=== PATIENT | male | born 1955 | race Caucasian/White ===

== ENCOUNTER 2018-07-05 06:27 | Inpatient (IN) | payer OTHER ==
--- NOTE | 2018-06-18 08:09 | HPE ---
DATE OF ADMISSION: 07/05/2018 ADMITTING PHYSICIAN: Dr. Mickey Gifford. CHIEF COMPLAINT: Right hip pain. HISTORY OF PRESENT ILLNESS: This is a pleasant 62-year-old male with progressively worsening right hip pain and stiffness. He has failed to improve with conservative treatment. He elected for surgery for his continued symptoms. He has pain with weightbearing activities and his activities of daily living. X-rays of his hip are notable for advanced osteoarthritis of the right hip joint. He has consented for a right total hip arthroplasty by Dr. Mickey Gifford. Medical optimization was performed by Dr. Dejan Gifford. ALLERGIES: None. CURRENT MEDICATIONS: - simvastatin 40 mg at bedtime - baby aspirin once a day - glipizide 5 mg twice a day - lisinopril 10 mg - sertraline 100 mg a day - tramadol 50 mg as needed PAST MEDICAL HISTORY INCLUDES: Diabetes. Hypertension. Hyperlipidemia. Anxiety or depression. PAST SURGICAL HISTORY INCLUDES: Back surgery in 2016 and a finger procedure. SOCIAL HISTORY: This gentleman is retired. Does not smoke. Rarely drinks alcohol. FAMILY HISTORY: Noncontributory. REVIEW OF SYSTEMS: This patient denies chest pain, heart palpitations, cough, wheezing, difficulty breathing and shortness of breath. He denies abdominal pain, nausea, vomiting, diarrhea or constipation. He denies recent upper respiratory infection or urinary tract infection symptoms. He does complain of persistent pain in the right hip joint and pain with weightbearing activities in his right hip. PHYSICAL EXAMINATION: General: He is a well-nourished, well-developed in no acute distress, alert male patient. He walks with a moderate limp favoring the right lower extremity. He is not using assistive devices. Vital signs: He is 5 feet 11, weighs 210 pounds with a temperature of 98.9, blood pressure 132/76, pulse of 82 and respirations of 18. Neck was supple without adenopathy or jugular venous distension. There were no carotid bruits appreciated upon auscultation. Lungs were clear to auscultation without rales or wheeze throughout. Heart: Regular rate and rhythm. Abdomen: Bowel sounds were present. Extremities: Examination of the hip revealed intact skin. The patient had decreased range of motion secondary to pain and stiffness. The limb is neurovascularly intact. LABORATORY DATA: The patient let me know he did have his labs done a week ago with Dr. Yuriy Gifford's office. Unfortunately, we do not have those today. We put in a call for them and they still have not shown up. He did let me know, however, that his only concern was with his EKG and that he should be hearing from Dr. Almaraz's office for clearance. So we are going to have him call back to Dr. Yuriy Gifford's office to check on that and will continue to look labs, chest x-ray and EKG. Should there be any difficulties with it we will get in touch with him but otherwise we will see him on 07/05/2018 for his right total hip arthroplasty with Dr. Mickey Gifford.
[2018-07-05] VITALS (7 sets, daily range): BP systolic 105–160; BP diastolic 58–88
[~2018-07-05] VITALS: Ht 188 cm; Wt 97.5 kg
[~2018-07-05 06:27] MED LIST: ASPI1TAB PO; CIPR250T3 PO; CIPR5SUS PO; GLIP5TAB8 PO; LISI10TA4 PO; LISI40TAB PO; NORC1TAB4 PO; SERT-138 PO; SIMV40TA2 PO; TRAM50TA2 PO; nitroglycerine SL
[2018-07-05] MEDS ORDERED: ceFAZolin 2 GM/D5W 50 ML IV BAG (J0690 PER 500MG) As Ordered ONE (07:04)
[2018-07-05] MEDS ORDERED: TRANEXAMIC ACID 100 MG/ML 10ML VIAL As Ordered ONE (07:12)
[2018-07-05] MEDS ORDERED: ceFAZolin 1GM INJ (J0690 PER 500MG) As Ordered ONE (07:12)
[2018-07-05] MEDS ORDERED: EPINEPHrine INJ 1 MG/ML 1ML AMP As Ordered ONE (07:12)
[2018-07-05] MEDS ORDERED: LR 1,000 ML IV ONE (07:30)
--- NOTE | 2018-07-05 07:49 | REP ---
Chest x-ray: Two views. History: Right hip arthritis. Comparison study: November 15, 2015. Findings: The lungs are well inflated and clear. The pleural angles are sharp. Heart size is normal. The aorta is somewhat tortuous. Pulmonary vasculature is not increased. Mild degenerative changes are seen in the thoracic spine. Impression: No active disease. Electronically Signed by Humberto Ross MD 07/05/2018 07:47 A
--- NOTE | 2018-07-05 07:50 | IPN ---
DATE: 07/05/2018 The patient seen and examined. He wished to go ahead with a right total hip arthroplasty. He understands the nature of this and the risks of bleeding, infection, damage to nerves, vessels, persistent pain, wear, loosening, dislocation, leg length inequality, blood clots, medical problems, among others. Preop clearance was obtained. He wishes to proceed.
[2018-07-05] MEDS ORDERED: PHENYLEPHRINE INJ 10MG/ML VIAL (J2370) As Ordered ONE (08:36)
[2018-07-05] MEDS ORDERED: fentaNYL 100 MCG/2 ML INJECTION (J3010) As Ordered ONE (08:36)
[2018-07-05] MEDS ORDERED: VASOPRESSIN INJ 20 UNITS/ML VIAL As Ordered ONE (08:36)
[2018-07-05] MEDS ORDERED: MIDAZOLAM INJ 2 MG/2 ML VIAL (J2250) As Ordered ONE (08:36)
[2018-07-05] MEDS ORDERED: PROPOFOL 200 MG/20 ML VIAL As Ordered ONE ×2 (08:36→09:11)
[2018-07-05] MEDS ORDERED: ONDANSETRON 4MG/2ML VIAL (J2405) As Ordered ONE (08:36)
[2018-07-05] MEDS ORDERED: LIDOCAINE 2% INJ 100 MG/5 ML SDV (FOR ANES.) As Ordered ONE (08:36)
[2018-07-05] MEDS ORDERED: BUPIVACAINE/DEXTROSE 0.75% 2 ML AMP As Ordered ONE (08:36)
[2018-07-05] MEDS: SERTRALINE 100 MG TAB PO SCH (09:00)
[2018-07-05] MEDS ORDERED: fentaNYL 100 MCG/2 ML INJECTION (J3010) IV PRN (10:00)
[2018-07-05] MEDS ORDERED: MORPHINE 4 MG/ML 1ML VIAL/SYRINGE (J2270) IV PRN (10:00)
[2018-07-05] MEDS ORDERED: FLEET ENEMA PR PRN (10:00)
[2018-07-05] MEDS ORDERED: ONDANSETRON 4MG/2ML VIAL (J2405) IV PRN ×2 (10:00)
[2018-07-05] MEDS ORDERED: ePHEDrine INJ 50 MG/ML VIAL IV SCH (10:00)
[2018-07-05] MEDS ORDERED: METOCLOPRAMIDE INJ 10MG/2ML VIAL (J2765) IV PRN (10:00)
[2018-07-05] MEDS ORDERED: MEPERIDINE INJ 25 MG/ML VIAL (J2175) IV PRN (10:00)
[2018-07-05] MEDS ORDERED: LR 1,000 ML IV SCH ×2 (10:00)
[2018-07-05] MEDS ORDERED: ACETAMINOPHEN TAB 650MG DOSE (2X325MG) PO PRN (10:00)
[2018-07-05] MEDS ORDERED: PERCOCET 5MG/325MG TAB PO PRN ×2 (10:00)
[2018-07-05] MEDS: ePHEDrine SULFATE 25 MG/5 ML(5MG/ML) SYRINGE IV SCH ×3 (10:05→10:14)
[2018-07-05] MEDS: PHENYLEPHRINE INJ 10MG/ML VIAL (J2370) IV SCH ×2 (10:40→10:48)
--- NOTE | 2018-07-05 10:46 | REP ---
Right hip: Two views. History: Postop. Findings: AP and cross-table lateral portably obtained radiographs right hip demonstrate right hip arthroplasty in good position. Lateral skin lópez are seen. No other finding. Electronically Signed by Humberto Ross MD 07/05/2018 02:32 P
[2018-07-05] MEDS ORDERED: DEXTROSE 50% 50 ML SYRINGE IV PRN (12:00)
[2018-07-05] MEDS ORDERED: GLUCAGON FOR INJ 1 MG VIAL (J1610) SC PRN (12:00)
[2018-07-05] MEDS ORDERED: GLUCOSE 4 GM CHEW TABLET PO PRN (12:00)
[2018-07-05] MEDS: HumaLOG INSULIN (NovoLOG) PER UNIT SC SCH ×2 (12:00→18:58)
[2018-07-05] MEDS: MORPHINE 4 MG/ML 1ML VIAL/SYRINGE (J2270) IV PRN ×3 (12:25→23:15)
--- NOTE | 2018-07-05 15:42 | IPNPDOC ---
Text Note Date of Service The patient was seen on 07/05/18. NOTE Subjective: Patient is a 62-year-old male with a past medical history of hypertension, dyslipidemia, diabetes and depression who presented to [facility] for an elective right hip arthroplasty with orthopedic surgery. Patient had received medical clearance via his outpatient provider, Dr. Dejan Gifford as well as Dr. Almaraz of cardiology. 's medical clearance involved an echocardiogram, EKG and a stress test, all of which was reported negative. hospitalist service was called for management of his medical problems. Patient was seen and examined at the bedside. Currently patient is seen postoperatively. He denies any chest pain, shortness of breath, palpitations. Denies nausea, vomiting, abdominal pain. Has not yet experienced a bowel movement since the procedure. Denies any urinary discomfort. Objective: Vitals (See below) General: Lying in bed, no acute distress, comfortable, AAOx3 HEENT: NC, AT CVS: RRR, +S1S2 Lungs: Fair air entry b/l, -w/r/r Abdomen: Soft, ND, NT Extremities: - Edema, - Calf tenderness Assessment and plan: Right hip pain - s/p total right hip arthroplasty (POD#0) - Presented to [facility] for an elective right hip total arthroplasty with orthopedic surgery - Patient has received medical clearance via his outpatient provider, Dr. Yuriy Gifford as well as clearance by cardiology Dr. Almaraz - Pain control, anticoagulation and physical therapy at direction of primary team HTN - Blood pressure appears moderately controlled - c/w Lisinopril with holding parameters DLP - c/w Simvastatin DM2 - Will start ISS Depression - c/w Sertraline DVT prophylaxis - As per orthopedic team [place] POWERS, I+O [facility] POWERS I+O Laboratory Tests 07/05/18 07:01 Vital Signs Date Time Temp Pulse Resp B/P (MAP) Pulse Ox O2 Delivery O2 Flow Rate FiO2 07/05/18 15:00 97.6 82 18 146/88 (107) 97 2.0 VI MCKAY MD Jul 05, 2018 15:42
[2018-07-05] MEDS: PERCOCET 5MG/325MG TAB PO PRN ×2 (15:50→20:50)
[2018-07-05] MEDS ORDERED: HumaLOG INSULIN (NovoLOG) PER UNIT SC SCH (21:00)
[2018-07-05] MEDS ORDERED: SIMVASTATIN 40 MG TAB PO SCH (21:00)
[2018-07-06] MEDS: PERCOCET 5MG/325MG TAB PO PRN ×2 (01:05→06:17)
[2018-07-06] MEDS: MORPHINE 4 MG/ML 1ML VIAL/SYRINGE (J2270) IV PRN (02:48)
[2018-07-06] MEDS: KETOROLAC 30 MG/ML VIAL (J1885) IV SCH ×3 (03:41→16:07)
[2018-07-06 06:00] VITALS: BP 146/70
[2018-07-06 07:20] LABS: BASO % 0.3 % (0.0-1.0); EOS # 0.1 10^3/uL (0.0-0.50); HEMATOCRIT 38.7 % (42.0-52.0); HEMOGLOBIN 12.8 g/dl (13.5-17.5); LYMPH # 1.5 10^3/uL (1.5-4.5); LYMPH % 16.4 % (24.0-44.0); MEAN CORPUSCULAR HEMOGLOBIN 31.1 pg (27.0-33.0); MEAN CORPUSCULAR HGB CONC 33.1 g/dl (32.0-36.5); MEAN CORPUSCULAR VOLUME 94.2 fl (80.0-96.0); MONO # 1.1 10^3/uL (0.0-0.8); MONO % 12.3 % (0.0-5.0); NEUTROPHILS # 6.3 10^3/uL (1.8-7.7); NEUTROPHILS % 69.5 % (36.0-66.0); PLATELET COUNT, AUTOMATED 141 10^3/uL (150-450); RED BLOOD COUNT 4.11 10^6/uL (4.30-6.10); WHITE BLOOD COUNT 9.1 10^3/uL (4.0-10.0)
[2018-07-06 07:29] LABS: INR 1.09; PROTHROMBIN TIME 14.2 SECONDS (12.1-14.4)
[2018-07-06 07:44] LABS: BLOOD UREA NITROGEN 18 MG/DL (7-18); CALCIUM LEVEL 8.2 MG/DL (8.8-10.2); CARBON DIOXIDE LEVEL 26 MEQ/L (21-32); CHLORIDE LEVEL 102 MEQ/L (98-107); CREATININE FOR GFR 1.25 MG/DL (0.70-1.30); GLOMERULAR FILTRATION RATE > 60.0 (>49); GLUCOSE, FASTING 220 MG/DL (70-100); MAGNESIUM LEVEL 1.8 MG/DL (1.8-2.4); POTASSIUM SERUM 4.1 MEQ/L (3.5-5.1); SODIUM LEVEL 137 MEQ/L (136-145)
[2018-07-06] MEDS: HumaLOG INSULIN (NovoLOG) PER UNIT SC SCH ×2 (08:04→12:34)
[2018-07-06] MEDS: SERTRALINE 100 MG TAB PO SCH (08:05)
[2018-07-06 08:06] VITALS: BP 146/70
[2018-07-06] MEDS ORDERED: LISINOPRIL 10 MG TAB PO SCH (09:00)
[2018-07-06] MEDS ORDERED: MOM 30ML SUSPENSION UDC PO SCH (09:00)
[2018-07-06] MEDS ORDERED: MIRALAX *UNIT DOSE* 17GM PACKET PO SCH (09:00)
[2018-07-06] MEDS ORDERED: XARE10TA PO (09:16)
[2018-07-06] MEDS ORDERED: PERC5TAB12 PO (09:16)
[2018-07-06 10:00] VITALS: BP 135/69
[2018-07-06] MEDS ORDERED: LEVEMIR (INSULIN DETEMIR) 1 UNITS/0.01ML SC ONE (13:00)
[2018-07-06 14:00] VITALS: BP 132/63
--- NOTE | 2018-07-06 14:14 | IPNPDOC ---
Text Note Date of Service The patient was seen on 07/06/18. NOTE Subjective: Patient is a 62-year-old male with a past medical history of hypertension, dyslipidemia, diabetes and depression who presented to [facility] [place] for an elective right hip arthroplasty with orthopedic surgery. Patient had received medical clearance via his outpatient provider, Dr. Dejan Gifford as well as Dr. Almaraz of cardiology. 's medical clearance involved an echocardiogram, EKG and a stress test, all of which was reported negative. hospitalist service was called for management of his medical problems. Patient was seen and examined at the bedside. Patient has no evidence of chest pain, shortness of breath or palpitations. He denies nausea, vomiting. Denies abdominal pain. Has had the ability to pass gas. Denies any bowel movements. Has not yet worked with physical therapy. Objective: Vitals (See below) General: Lying in bed, no acute distress, comfortable, AAOx3 HEENT: NC, AT CVS: RRR, +S1S2 Lungs: Fair air entry b/l, auscultation is without any wheezing, rales or rhonchi Abdomen: Soft, nondistended without tenderness Extremities: No evidence of lower extremity edema, - Calf tenderness Assessment and plan: Right hip pain - s/p total right hip arthroplasty (POD#1) - Presented to [facility] for an elective right hip total arthroplasty with orthopedic surgery - Patient has received medical clearance via his outpatient provider, Dr. Dejan Gifford as well as clearance by cardiology Dr. Almaraz - Pain control, anticoagulation and physical therapy at direction of primary team HTN - Blood pressure appears moderately controlled - c/w Lisinopril with holding parameters DLP - c/w Simvastatin DM2 with Hyperglycemia - Will start long-acting insulin at low dose - c/w ISS Depression - c/w Sertraline DVT prophylaxis - As per orthopedic team Disposition: - Will be working with physical therapy today [place] POWERS, I+O [place] POWERS, I+O Laboratory Tests 07/06/18 06:52 Red Blood Count 4.11 L, Mean Corpuscular Volume 94.2, Mean Corpuscular Hemoglobin 31.1, Mean Corpuscular Hemoglobin Concent 33.1, Red Cell Distribution Width 12.7, Neutrophils (%) (Auto) 69.5 H, Lymphocytes (%) (Auto) 16.4 L, Monocytes (%) (Auto) 12.3 H, Eosinophils (%) (Auto) 1.0, Basophils (%) (Auto) 0.3, Neutrophils # (Auto) 6.3, Lymphocytes # (Auto) 1.5, Monocytes # (Auto) 1.1 H, Eosinophils # (Auto) 0.1, Basophils # (Auto) 0.0, Calcium Level 8.2 L Vital Signs Date Time Temp Pulse Resp B/P (MAP) Pulse Ox O2 Delivery O2 Flow Rate FiO2 07/06/18 10:00 96.8 75 18 135/69 (91) 91 07/05/18 16:00 2.0 I&O- Last 24 Hours up to 6 AM 07/06/18 06:00 Intake Total 5460 ml Output Total 2800 ml Balance 2660 ml VI MCKAY MD Jul 06, 2018 14:14
[2018-07-06] MEDS ORDERED: ePHEDrine SULFATE 25 MG/5 ML(5MG/ML) SYRINGE ONE (16:29)
[2018-07-06] MEDS ORDERED: RIVAROXABAN 10 MG TAB (XARELTO) PO SCH (18:00)
[2018-07-07] MEDS ORDERED: LEVEMIR (INSULIN DETEMIR) 1 UNITS/0.01ML SC SCH (09:00)
--- NOTE | 2018-07-09 09:32 | DSES ---
DATE OF ADMISSION: 07/05/2018 DATE OF DISCHARGE: 07/06/2018 ADMISSION DIAGNOSIS: Symptomatic right hip osteoarthritis. DISCHARGE DIAGNOSIS: Status post right total hip arthroplasty. HISTORY OF PRESENT ILLNESS: This is a pleasant 62-year-old male with progressive right hip osteoarthritis, pain and stiffness. He consented for a right total hip arthroplasty per Dr. Mickey Gifford. Medical optimization per Dr. Dejan Gifford. X-rays were consistent with advanced osteoarthritis. HOSPITAL COURSE: The patient uneventfully underwent a right total hip arthroplasty under spinal anesthesia and was returned to postanesthesia care unit (PACU) comfortable. Our hospital team felt the patient was ready for discharge on 07/06/2018 with the following instructions, diet is regular, weightbearing as tolerated with walker, thromboembolic-deterrent (OLIVER) stockings times 30 days, Xarelto for deep vein thrombosis (DVT) prophylaxis, Percocet as needed for pain, Optifoam dressing change in 3-4 days' time with followup at orthopedic group and 12-14 days for a wound check and staple removal. The patient is encouraged to contact our office sooner with increased pain, numbness, tingling, drainage, fever greater than 101 or further concerns. MTDD
--- NOTE | 2018-07-09 11:14 | RO ---
DATE OF PROCEDURE: 07/05/2018 PREOPERATIVE DIAGNOSIS: Right hip osteoarthritis. POSTOPERATIVE DIAGNOSIS: Right hip osteoarthritis. PROCEDURE: Right total hip arthroplasty using a Corona high offset size 6 with a 1.5 neck, 36 ball, and a 60 cup. SURGEON: Dr. Mickey Gifford [employer] WORKER: Tarun Godwin ANESTHESIA: Spinal. ESTIMATED BLOOD LOSS: 200. COMPLICATIONS: None. INDICATIONS: 62-year-old gentleman who has had some persistent worsening right hip pain. He wished to go ahead with surgical treatment. He understood the nature of this, the risks of bleeding, infection, damage to nerves, vessels, persistent pain, wear, loosening, dislocation, leg length inequality, blood clots, medical problems, , among others. DESCRIPTION OF PROCEDURE: Patient was taken to the operating room, placed in supine position after spinal anesthesia was induced. The patient was turned to the left lateral decubitus position. The right hip was prepped and draped in usual sterile fashion. A Levar positioner was used, and all areas were padded appropriately. Then, after time-out was performed, created a longitudinal incision over the lateral aspect of the hip. Sharp dissection was carried down through subcutaneous tissue, and the fascia was exposed. I controlled hemostasis with the cautery. I then divided the anterior 40% of the abductor off the anterior aspect of the hip and exposed the femoral neck. Once I had appropriately freed this up, I was able to dislocate the hip with the cook's assistant's help. I used a canal initiating reamer followed by the canal finding reamer, the lateralizing reamer, and then sequentially reamed up to a size 6, which had good purchase and good fill. I then removed the femoral head, making a cut about three-quarters of a fingerbreadth up from the lesser trochanter. I then prepared the acetabulum. Soft tissue was removed from around the acetabulum. I then sequentially reamed, starting with approximately a 50, and was able to ream up to a 59 with good bleeding bone and good concentric reaming. I was very pleased with the appearance of the acetabulum. I then was able to impact in a size 60 cup, and the appropriate amount of anteversion in horizontal tilt impacted this down until it was well seated. There was a small osteophyte anteriorly that was removed. I placed the apex hole eliminator followed by the 60 x 36 polyethylene, which was impacted in place. This was well seated. I directed attention back to the femur, used the cookie cutter to remove the proximal bone, and then sequentially broached up to a size 6, which had excellent fit and fill. I was able to countersink it slightly so the calcar planer was used, and then I trialed off of this. The 1.5 and 5 were both trialed, and the 1.5 had better soft tissue tension. I did use a high offset because I did medialize the acetabulum some and also he had a high offset varus type neck. The 1.5 had appropriate soft tissue tension and minimal shuck in full extension, was very stable in extension, external rotation, flexion, internal rotation. Position appeared to be excellent. I irrigated as I had multiple times prior to this. I irrigated canal, placed the actual size 6 high offset stem, impacted it in place. I did one more trial with the next and selected the 1.5 head, which was impacted over a dry taper, and I then copiously irrigated, placed the tranexamic acid (TXA) solution. I repaired the minimus with #1 Vicryl suture, the abductor, which was notably detached at the initiation of the exposure. There was corticated bone along the anterior aspect of the proximal femur. I decorticated this with a rongeur and then took a significant amount of time repairing the abductor with several holes being placed through the bone and was able to get reasonably good tissue and very solid stitches. This was done with #1 Vicryl suture. I then repaired the fascia dirk with #1 Vicryl suture in interrupted fashion and running Stratafix suture obtaining a watertight closure. I irrigated at each level, closed the subcu with #2-0 Vicryl and the skin with lópez. Sterile dressing was applied, and he was taken to recovery room in stable condition. There were no known complications. The plan will be routine postop. The cook's assistant was instrumental in holding retractors and assisting in reducing and dislocating the hip and assisting in wound closure.
== END 2018-07-06 16:30 | disposition home or self-care (01) | DRG 470 ==
LOC: M OR 06:27 → M MS5PR 11:24
PROVIDERS: ADMIT Orthopaedic Surgery; ATTEND Orthopaedic Surgery
PROC: 0SR90JZ Replacement of Right Hip Joint with Synthetic Substitute, Open Approach (ICD-10-PCS; principal; 2018-07-05 07:30)
DX: M16.11 Unilateral primary osteoarthritis, right hip (principal); Z79.899 Other long term (current) drug therapy; E11.9 Type 2 diabetes mellitus without complications; I10 Essential (primary) hypertension; E78.5 Hyperlipidemia, unspecified; F32.9 Major depressive disorder, single episode, unspecified; F41.9 Anxiety disorder, unspecified; Z79.82 Long term (current) use of aspirin

== ENCOUNTER 2019-08-29 22:10 | Emergency (ER) | payer OTHER, MEDICARE ==
[~2019-08-29] VITALS: Ht 180.3 cm; Wt 104.5 kg
[~2019-08-29 22:10] MED LIST changes: -ASPI1TAB PO; +ASPI81TA26 PO; +LISI40TA52 PO; -LISI40TAB PO; -NORC1TAB4 PO; +NORC1TAB7 PO; +PERC5TAB12 PO; -SIMV40TA2 PO; +SIMV40TA20 PO; +XARE10TA PO
[2019-08-30] MEDS ORDERED: NS 1,000 ML IV ONE
[2019-08-30 00:38] LABS: HEMATOCRIT 33.6 % (42.0-52.0); HEMOGLOBIN 10.5 g/dl (13.5-17.5); MEAN CORPUSCULAR HEMOGLOBIN 28.6 pg (27.0-33.0); MEAN CORPUSCULAR HGB CONC 31.3 g/dl (32.0-36.5); MEAN CORPUSCULAR VOLUME 91.6 fl (80.0-96.0); PLATELET COUNT, AUTOMATED 135 10^3/uL (150-450); RED BLOOD COUNT 3.67 10^6/uL (4.30-6.10)
[2019-08-30 00:56] LABS: INR 1.11
[2019-08-30 01:08] LABS: ALBUMIN 2.1 GM/DL (3.2-5.2); BILIRUBIN,DIRECT 0.3 MG/DL (0.0-0.2); BILIRUBIN,TOTAL 0.8 MG/DL (0.2-1.0); TOTAL PROTEIN 6.9 GM/DL (6.4-8.2)
[2019-08-30 01:32] LABS: WHITE BLOOD COUNT 23.6 10^3/uL (4.0-10.0)
[2019-08-30 01:41] LABS: ANISOCYTOSIS 1+; EOSINOPHILS 1 % (0-3); LYMPHOCYTES 49 % (16-44); MONOCYTES 5 % (0-5); NEUTROPHILS 44 % (28-66); PLATELET ESTIMATE NORMAL (NORMAL)
[2019-08-30 01:42] LABS: HYPOCHROMASIA 1+
[2019-08-30 01:43] LABS: PLATELET CLUMPS SMALL AMT
[2019-08-30] MEDS ORDERED: ISOVUE-370 76% 100ML VIAL As Ordered ONE (03:20)
--- NOTE | 2019-08-30 04:25 | REPVR ---
PROCEDURE INFORMATION: Exam: CT Angiography Abdomen and Pelvis With Contrast Exam date and time: 08/30/2019 3:05 AM Age: 63 years old Clinical indication: Other: Bloddy drainage praful tube; Prior surgery; Surgery date: Post-operative (0-2 days); Surgery type: Recent biopsy of mass; Additional info: Bloody drainage praful tube/recent biopsy of mass in abd TECHNIQUE: Imaging protocol: Computed tomographic angiography of the abdomen and pelvis with intravenous contrast material. 3D rendering: MIP and/or 3D reconstructed images were created by the technologist. Radiation optimization: All CT scans at this facility use at least one of these dose optimization techniques: automated exposure control; mA and/or kV adjustment per patient size (includes targeted exams where dose is matched to clinical indication); or iterative reconstruction. Contrast material: ISO; Contrast volume: 100 ml; Contrast route: AC; COMPARISON: DC Hip, Ap,Lat 2018-07-05 09:54 FINDINGS: Tubes, catheters and devices: Percutaneous cholecystostomy tube is in position. Lungs: Moderate left-sided pleural effusion with associated pulmonary left lower lobe atelectasis. Aorta: Large bulky mass extending within the retroperitoneum around the aorta, and along the mesenteric root into the mesentery measuring approximately 18 x 18 x 16 cm. Celiac trunk and mesenteric arteries: No occlusion or significant stenosis. Renal arteries: Mild right renal artery stenosis. Right iliac arteries: No occlusion or significant stenosis. Left iliac arteries: No occlusion or significant stenosis. Liver: No mass. Gallbladder and bile ducts: Small amount of contrast in the gallbladder versus stones or small amount of hemorrhage. Pancreas: Diffuse heterogeneity of the pancreas, which appears involved and or encased by the diffuse mass. Question necrosis versus peripancreatic fluid collections. Spleen: Unremarkable. No splenomegaly. Adrenals: Unremarkable. No mass. Kidneys and ureters: Unchanged 2.5 cm right renal cyst. Punctate nonobstructing right renal calculus. Stomach and bowel: Unremarkable. No obstruction. No mucosal thickening. Appendix: No evidence of appendicitis. Intraperitoneal space: Small amount of free fluid. Adjacent fluid collections in the mesentery, largest measuring approximately 13 x 4.5 cm. Lymph nodes: Large left pelvic lymph node measuring 5 cm. Bladder: Unremarkable. No mass. Reproductive: Unremarkable as visualized. Bones/joints: Right hip arthroplasty hardware. Previous lumbar surgical changes. Soft tissues: Unremarkable. Other findings: Mass appears inseparable from the duodenal sweep. IMPRESSION: 1. No acute arterial abnormality. 2. Moderate left-sided pleural effusion with associated pulmonary left lower lobe atelectasis. 3. Percutaneous cholecystostomy tube is in position. 4. Large bulky mass extending within the retroperitoneum around the aorta, and along the mesenteric root into the mesentery measuring approximately 18 x 18 x 16 cm. Likely lymphoma, or aggressive pancreatic mass. 5. Small amount of free fluid. 6. Diffuse heterogeneity of the pancreas, which appears involved and or encased by the diffuse mass. Adjacent fluid collections in the mesentery, largest measuring approximately 13 x 4.5 cm. Question necrosis versus peripancreatic fluid collections. 7. Large left pelvic lymph node measuring 5 cm. 8. Mass appears inseparable from the duodenal sweep. 9. Small amount of contrast in the gallbladder versus stones or small amount of hemorrhage. Electronically signed by: Junito Martinez On 08/30/2019 04:25:08 AM
[2019-08-30] MEDS ORDERED: NS 1,000 ML IV SCH (07:45)
[2019-08-30 07:56] LABS: HEMATOCRIT 30.6 % (42.0-52.0); HEMOGLOBIN 9.8 g/dl (13.5-17.5); MEAN CORPUSCULAR HEMOGLOBIN 29.1 pg (27.0-33.0); MEAN CORPUSCULAR VOLUME 90.8 fl (80.0-96.0); PLATELET COUNT, AUTOMATED 125 10^3/uL (150-450); RED BLOOD COUNT 3.37 10^6/uL (4.30-6.10); WHITE BLOOD COUNT 20.2 10^3/uL (4.0-10.0)
[2019-08-30 09:03] VITALS: BP 140/72
== END 2019-08-30 09:07 | disposition short-term general hospital (02) ==
LOC: M ED 22:10
DX: K91.89 Other postprocedural complications and disorders of digestive system (principal); E11.9 Type 2 diabetes mellitus without complications; I10 Essential (primary) hypertension; J45.909 Unspecified asthma, uncomplicated; C91.10 Chronic lymphocytic leukemia of B-cell type not having achieved remission; E78.5 Hyperlipidemia, unspecified; F33.9 Major depressive disorder, recurrent, unspecified; G47.33 Obstructive sleep apnea (adult) (pediatric); Z79.899 Other long term (current) drug therapy
CPT/HCPCS: 36415; 74174; 80047; 80076; 82140; 83605; 83690; 85025; 85027; 85610; 85730; 96360; 96361; 99284; Q9967

== ENCOUNTER → 2019-12-03 | Outpatient (CLI) | payer OTHER, MEDICARE | LOC: M LAB 12:22 | PROVIDERS: ATTEND Family Medicine | DX: C91.10 Chronic lymphocytic leukemia of B-cell type not having achieved remission (principal) ==

== ENCOUNTER 2019-12-04 09:33 | Outpatient (CLI) | payer OTHER, MEDICARE ==
[~2019-12-04] VITALS: Ht 180.3 cm; Wt 90.9 kg
[2019-12-04] VITALS (7 sets, daily range): BP systolic 124–143; BP diastolic 65–81
[~2019-12-04 09:33] MED LIST changes: +ACETAMINOPHEN TAB 650MG DOSE (2X325MG) PO SCH; +diphenhydrAMINE 25MG CAP PO SCH
[2019-12-04] MEDS ORDERED: ACETAMINOPHEN TAB 650MG DOSE (2X325MG) As Ordered ONE (10:10)
[2019-12-04] MEDS ORDERED: diphenhydrAMINE 25MG CAP As Ordered ONE (10:10)
== END 2019-12-04 14:50 | disposition home or self-care (01) ==
LOC: M INFU 09:33
PROVIDERS: ATTEND Family Medicine
DX: C91.10 Chronic lymphocytic leukemia of B-cell type not having achieved remission (principal)
CPT/HCPCS: 36430; P9040